=== PATIENT | female | born 1980 | race African-American/Black ===

== ENCOUNTER 2025-02-27 16:42 | Emergency (ER) | payer OTHER ==
[2025-02-27] MEDS ORDERED: HYDROcodone/Acetaminophen 5/325 mg Tablet ONE (17:16)
== END 2025-02-27 17:00 | disposition home or self-care (01) ==
LOC: CSHERS 16:42
DX: M79.18 Myalgia, other site (principal); M25.512 Pain in left shoulder; M25.552 Pain in left hip; M54.50 Low back pain, unspecified; M54.2 Cervicalgia; V89.2XXA Person injured in unspecified motor-vehicle accident, traffic, initial encounter
CPT/HCPCS: 70450; 71045; 72125; 72131; 72170